=== PATIENT | female | born 1950 | race Native Hawaiian/Other Pacific Islander ===

== ENCOUNTER 2019-07-19 08:23 | Day surgery (SDC) | payer OTHER ==
[2019-07-19 09:46] LABS: PLATELET COUNT 127 K/uL (152-353)
== END 2019-07-19 10:12 | disposition home or self-care (01) ==
LOC: OR 08:23
PROVIDERS: Pain Medicine Interventional Pain Medicine
DX: Z53.8 Procedure and treatment not carried out for other reasons (principal)
CPT/HCPCS: 85027

== ENCOUNTER 2019-08-09 09:59 | Day surgery (SDC) | payer OTHER | END 2019-08-09 15:20 | disposition home or self-care (01) | LOC: OR 09:59 | PROC: 3E0R33Z Introduction of Anti-inflammatory into Spinal Canal, Percutaneous Approach (ICD-10-PCS; principal; 2019-08-09) | PROC: B01BYZZ Fluoroscopy of Spinal Cord using Other Contrast (ICD-10-PCS; 2019-08-09) | DX: M50.123 Cervical disc disorder at C6-C7 level with radiculopathy (principal) | CPT/HCPCS: J1020 ==

== ENCOUNTER 2019-08-23 09:27 | Day surgery (SDC) | payer OTHER | END 2019-08-23 11:20 | disposition home or self-care (01) | LOC: OR 09:27 | PROC: 3E0R33Z Introduction of Anti-inflammatory into Spinal Canal, Percutaneous Approach (ICD-10-PCS; principal; 2019-08-23) | PROC: B01BYZZ Fluoroscopy of Spinal Cord using Other Contrast (ICD-10-PCS; 2019-08-23) | DX: M50.123 Cervical disc disorder at C6-C7 level with radiculopathy (principal) | CPT/HCPCS: J1020 ==

== ENCOUNTER 2019-09-20 08:32 | Day surgery (SDC) | payer OTHER | END 2019-09-20 10:04 | disposition home or self-care (01) | LOC: OR 08:32 | PROC: 3E0R33Z Introduction of Anti-inflammatory into Spinal Canal, Percutaneous Approach (ICD-10-PCS; principal; 2019-09-20) | PROC: B01BYZZ Fluoroscopy of Spinal Cord using Other Contrast (ICD-10-PCS; 2019-09-20) | DX: M51.17 Intervertebral disc disorders with radiculopathy, lumbosacral region (principal) | CPT/HCPCS: J1020 ==

== ENCOUNTER 2020-01-26 11:03 | Day surgery (SDC) | payer OTHER ==
[~2020-01-26] VITALS: Ht 30.5 cm; Wt 0.5 kg
== END 2020-01-26 13:10 | disposition home or self-care (01) ==
LOC: OR 11:03
PROC: 3E0R33Z Introduction of Anti-inflammatory into Spinal Canal, Percutaneous Approach (ICD-10-PCS; principal; 2020-01-26)
PROC: B01BYZZ Fluoroscopy of Spinal Cord using Other Contrast (ICD-10-PCS; 2020-01-26)
DX: M51.16 Intervertebral disc disorders with radiculopathy, lumbar region (principal)
CPT/HCPCS: J1020